=== PATIENT | male | born 1950 | race Caucasian/White ===

== ENCOUNTER 2020-10-28 11:57 | Inpatient (IN) | payer OTHER, MEDICARE ==
[2020-10-28] MEDS ORDERED: IPRATROPIUM-ALBUTEROL 3 ML NEB INHALATION STA (12:35)
--- NOTE | 2020-10-28 12:37 | ED ---
General Adult HPI - General Chief complaint: Weakness Stated complaint: weakness, confusion Time Seen by Provider: 10/28/20 12:00 Source: patient, family, RN notes reviewed, old records reviewed Mode of arrival: wheelchair Limitations: no limitations - History of Present Illness Initial comments: This is a 70-year-old male who presents emergency Department with a past medical history significant for bypass surgery hypertension high cholesterol. Patient comes in today stating since Tuesday he is becoming weaker and weaker to the point where he can't walk. Patient states she's also been somewhat short of breath. Patient also complains of congestion and coughing up some clear sputum. Patient denies any chest pain or palpitations. Patient denies any headache patient denies numbness weakness. Patient has any near syncopal episode. Patient denies any nausea vomiting or diarrhea. Patient's any abdominal pain. Patient denies any leg swelling or calf tenderness. - Related Data Home Medications Medication Instructions Recorded Confirmed Aspirin EC [Ecotrin Low Dose] 81 mg PO HS 10/28/20 10/28/20 Budesonide/Formoterol Fumarate 2 puff INHALATION RT-BID 10/28/20 10/28/20 [Symbicort 80-4.5 Mcg Inhaler] Cholecalciferol [Vitamin D3 (25 25 mcg PO BID 10/28/20 10/28/20 Mcg = 1000 Iu)] Cyclobenzaprine [Flexeril] 10 mg PO HS 10/28/20 10/28/20 EPINEPHrine (Auto Inject) [Epipen] 0.3 mg IM ONCE PRN 10/28/20 10/28/20 Ezetimibe [Zetia] 10 mg PO HS 10/28/20 10/28/20 HYDROcodone/APAP 10-325MG [[place] 1 tab PO 5XD PRN 10/28/20 10/28/20 10-325] Lidocaine 5% Patch [Lidoderm] 1 patch TRANSDERM DAILY PRN 10/28/20 10/28/20 Metoprolol Tartrate [Lopressor] 25 mg PO BID 10/28/20 10/28/20 Naloxone HCl [Narcan] 4 mg NASAL ONCE PRN 10/28/20 10/28/20 [place]-3 Fatty Acids/Fish Oil [Fish 2 cap PO BID 10/28/20 10/28/20 Oil 1,000 mg Softgel] Rosuvastatin Calcium [Crestor] 5 mg PO DAILY 10/28/20 10/28/20 Allergies Allergy/AdvReac Type Severity Reaction Status Date / Time bee venom protein (honey bee) Allergy Anaphylaxis Verified 10/28/20 13:48 ibuprofen Allergy Rash/Hives Verified 10/28/20 13:48 atorvastatin AdvReac Muscle Pain Verified 10/28/20 13:48 naproxen AdvReac Nausea & Verified 10/28/20 13:48 Vomiting rosuvastatin [From Crestor] AdvReac Muscle Pain Verified 10/28/20 13:48 simvastatin AdvReac Muscle Pain Verified 10/28/20 13:48 zolpidem AdvReac Fatigue Verified 10/28/20 13:48 Review of Systems ROS Statement: Those systems with pertinent positive or pertinent negative responses have been documented in the HPI. ROS Other: All systems not noted in ROS Statement are negative. Past Medical History Past Medical History: Coronary Artery Disease (CAD), Hyperlipidemia, Hypertension History of Any Multi-Drug Resistant Organisms: None Reported Past Surgical History: Cardiac Valve Replacement, Cholecystectomy, Pacemaker Past Psychological History: PTSD Smoking Status: Former smoker Past Alcohol Use History: None Reported Past Drug Use History: Marijuana General Exam - General Exam Comments Initial Comments: GENERAL: Patient is well-developed and well-nourished. Patient is nontoxic and well- hydrated and is in mild distress. ENT: Neck is soft and supple. No significant lymphadenopathy is noted. Oropharynx is clear. Moist mucous membranes. Neck has full range of motion without eliciting any pain. EYES: The sclera were anicteric and conjunctiva were pink and moist. Extraocular movements were intact and pupils were equal round and reactive to light. Eyelids were unremarkable. PULMONARY: Unlabored respirations. Good breath sounds bilaterally. Patient has diffuse c rackles worse on the right than the left. CARDIOVASCULAR: There is a regular rate and rhythm without any murmurs gallops or rubs. ABDOMEN: Soft and nontender with normal bowel sounds. SKIN: Skin is clear with no lesions or rashes and otherwise unremarkable. NEUROLOGIC: Patient is alert and oriented x3. Cranial nerves II through XII are grossly intact. Motor and sensory are also intact. Normal speech, volume and content. Symmetrical smile. MUSCULOSKELETAL: Normal extremities with adequate strength and full range of motion. LYMPHATICS: No significant lymphadenopathy is noted PSYCHIATRIC: Normal psychiatric evaluation. Limitations: no limitations Course Vital Signs 10/28/20 10/28/20 10/28/20 11:59 12:31 13:05 Temperature 98.5 F Pulse Rate 85 88 Respiratory 20 18 Rate Blood Pressure 126/76 O2 Sat by Pulse 93 L Oximetry 10/28/20 10/28/20 13:12 14:26 Temperature Pulse Rate 86 86 Respiratory 18 Rate Blood Pressure 139/78 O2 Sat by Pulse 98 Oximetry Medical Decision Making - Medical Decision Making EKG shows normal sinus rhythm at 83 bpm CA interval 192 QRS is 162 QT interval 454 QTC is 533. Patient's EKG shows a right bundle branch block. Chest x-ray shows coved pneumonia. New. Patient is COVID positive so started the patient on Decadron. Patient elevated d-dimer so I did a CAT scan of the chest per CT of the chest shows COVID ammonia but no pulmonary embolism. - Lab Data Result diagrams: 10/28/20 12:37 10/28/20 12:37 Lab Results 10/28/20 10/28/20 10/28/20 Range/Units 12:37 12:37 12:37 WBC 5.5 (3.8-10.6) k/uL RBC 4.66 (4.30-5.90) m/uL Hgb 14.3 (13.0-17.5) gm/dL Hct 42.5 (39.0-53.0) % MCV 91.2 (80.0-100.0) fL MCH 30.7 (25.0-35.0) pg MCHC 33.7 (31.0-37.0) g/dL RDW 13.1 (11.5-15.5) % Plt Count 101 L (150-450) k/uL MPV 8.3 Neutrophils % 69 % Lymphocytes % 24 % Monocytes % 5 % Eosinophils % 0 % Basophils % 1 % Neutrophils # 3.8 (1.3-7.7) k/uL Lymphocytes # 1.3 (1.0-4.8) k/uL Monocytes # 0.3 (0-1.0) k/uL Eosinophils # 0.0 (0-0.7) k/uL Basophils # 0.0 (0-0.2) k/uL PT 10.3 (9.0-12.0) sec INR 1.0 (<1.2) APTT 25.9 (22.0-30.0) sec D-Dimer 0.87 H (<0.60) mg/L FEU Sodium 137 (137-145) mmol/L Potassium 4.1 (3.5-5.1) mmol/L Chloride 97 L (98-107) mmol/L Carbon Dioxide 27 (22-30) mmol/L Anion Gap 13 mmol/L BUN 19 (9-20) mg/dL Creatinine 0.74 (0.66-1.25) mg/dL Est GFR (CKD-EPI)AfAm >90 (>60 ml/min/1.73 sqM) Est GFR (CKD-EPI)NonAf >90 (>60 ml/min/1.73 sqM) Glucose 110 H (74-99) mg/dL Plasma Lactic Acid [place] (0.7-2.0) mmol/L Calcium 8.7 (8.4-10.2) mg/dL Total Bilirubin 0.7 (0.2-1.3) mg/dL AST 75 H (17-59) U/L ALT 29 (4-49) U/L Alkaline Phosphatase 34 L (38-126) U/L Troponin I (0.000-0.034) ng/mL NT-Pro-B Natriuret Pep pg/mL Total Protein 7.0 (6.3-8.2) g/dL Albumin 4.3 (3.5-5.0) g/dL Urine Color Urine Appearance (Clear) Urine pH (5.0-8.0) Ur Specific [place] (1.001-1.035) Urine Protein (Negative) Urine Glucose (UA) (Negative) Urine Ketones (Negative) Urine Blood (Negative) Urine Nitrite (Negative) Urine Bilirubin (Negative) Urine Urobilinogen (<2.0) mg/dL Ur Leukocyte Esterase (Negative) Urine WBC (0-5) /hpf Urine Bacteria (None) /hpf Hyaline Casts (0-2) /lpf Urine Mucus (None) /hpf Coronavirus (PCR) (Not Detectd) 10/28/20 10/28/20 10/28/20 Range/Units 12:37 12:37 12:37 WBC (3.8-10.6) k/uL RBC (4.30-5.90) m/uL Hgb (13.0-17.5) gm/dL Hct (39.0-53.0) % MCV (80.0-100.0) fL MCH (25.0-35.0) pg MCHC (31.0-37.0) g/dL RDW (11.5-15.5) % Plt Count (150-450) k/uL MPV Neutrophils % % Lymphocytes % % Monocytes % % Eosinophils % % Basophils % % Neutrophils # (1.3-7.7) k/uL Lymphocytes # (1.0-4.8) k/uL Monocytes # (0-1.0) k/uL Eosinophils # (0-0.7) k/uL Basophils # (0-0.2) k/uL PT (9.0-12.0) sec INR (<1.2) APTT (22.0-30.0) sec D-Dimer (<0.60) mg/L FEU Sodium (137-145) mmol/L Potassium (3.5-5.1) mmol/L Chloride (98-107) mmol/L Carbon Dioxide (22-30) mmol/L Anion Gap mmol/L BUN (9-20) mg/dL Creatinine (0.66-1.25) mg/dL Est GFR (CKD-EPI)AfAm (>60 ml/min/1.73 sqM) Est GFR (CKD-EPI)NonAf (>60 ml/min/1.73 sqM) Glucose (74-99) mg/dL Plasma Lactic Acid [place] 1.4 (0.7-2.0) mmol/L Calcium (8.4-10.2) mg/dL Total Bilirubin (0.2-1.3) mg/dL AST (17-59) U/L ALT (4-49) U/L Alkaline Phosphatase (38-126) U/L Troponin I 0.014 (0.000-0.034) ng/mL NT-Pro-B Natriuret Pep 38 pg/mL Total Protein (6.3-8.2) g/dL Albumin (3.5-5.0) g/dL Urine Color Urine Appearance (Clear) Urine pH (5.0-8.0) Ur Specific [place] (1.001-1.035) Urine Protein (Negative) Urine Glucose (UA) (Negative) Urine Ketones (Negative) Urine Blood (Negative) Urine Nitrite (Negative) Urine Bilirubin (Negative) Urine Urobilinogen (<2.0) mg/dL Ur Leukocyte Esterase (Negative) Urine WBC (0-5) /hpf Urine Bacteria (None) /hpf Hyaline Casts (0-2) /lpf Urine Mucus (None) /hpf Coronavirus (PCR) (Not Detectd) 10/28/20 10/28/20 Range/Units 12:38 14:42 WBC (3.8-10.6) k/uL RBC (4.30-5.90) m/uL Hgb (13.0-17.5) gm/dL Hct (39.0-53.0) % MCV (80.0-100.0) fL MCH (25.0-35.0) pg MCHC (31.0-37.0) g/dL RDW (11.5-15.5) % Plt Count (150-450) k/uL MPV Neutrophils % % Lymphocytes % % Monocytes % % Eosinophils % % Basophils % % Neutrophils # (1.3-7.7) k/uL Lymphocytes # (1.0-4.8) k/uL Monocytes # (0-1.0) k/uL Eosinophils # (0-0.7) k/uL Basophils # (0-0.2) k/uL PT (9.0-12.0) sec INR (<1.2) APTT (22.0-30.0) sec D-Dimer (<0.60) mg/L FEU Sodium (137-145) mmol/L Potassium (3.5-5.1) mmol/L Chloride (98-107) mmol/L Carbon Dioxide (22-30) mmol/L Anion Gap mmol/L BUN (9-20) mg/dL Creatinine (0.66-1.25) mg/dL Est GFR (CKD-EPI)AfAm (>60 ml/min/1.73 sqM) Est GFR (CKD-EPI)NonAf (>60 ml/min/1.73 sqM) Glucose (74-99) mg/dL Plasma Lactic Acid [place] (0.7-2.0) mmol/L Calcium (8.4-10.2) mg/dL Total Bilirubin (0.2-1.3) mg/dL AST (17-59) U/L ALT (4-49) U/L Alkaline Phosphatase (38-126) U/L Troponin I (0.000-0.034) ng/mL NT-Pro-B Natriuret Pep pg/mL Total Protein (6.3-8.2) g/dL Albumin (3.5-5.0) g/dL Urine Color Yellow Urine Appearance Clear (Clear) Urine pH 5.5 (5.0-8.0) Ur Specific [place] 1.030 (1.001-1.035) Urine Protein 1+ H (Negative) Urine Glucose (UA) Negative (Negative) Urine Ketones 2+ H (Negative) Urine Blood Negative (Negative) Urine Nitrite Negative (Negative) Urine Bilirubin Negative (Negative) Urine Urobilinogen <2.0 (<2.0) mg/dL Ur Leukocyte Esterase Negative (Negative) Urine WBC 1 (0-5) /hpf Urine Bacteria Rare H (None) /hpf Hyaline Casts 1 (0-2) /lpf Urine Mucus Rare H (None) /hpf Coronavirus (PCR) Detected A (Not Detectd) Disposition Clinical Impression: Pneumonia due to COVID-19 virus, Generalized weakness Disposition: ADMITTED IP TO THIS HOSP Referrals: [facility] [Primary Care Provider] - 1-2 days Time of Disposition: 15:28
[2020-10-28 13:00] LABS: Basophils % (A) 1 %; Eosinophils % (A) 0 %; HCT 42.5 % (39.0-53.0); HGB 14.3 gm/dL (13.0-17.5); Lymphocytes # (A) 1.3 k/uL (1.0-4.8); Lymphocytes % (A) 24 %; MCH 30.7 pg (25.0-35.0); MCHC 33.7 g/dL (31.0-37.0); MCV 91.2 fL (80.0-100.0); Mean Platelet Volume 8.3; Monocytes # (A) 0.3 k/uL (0-1.0); Monocytes % (A) 5 %; Neutrophils # (A) 3.8 k/uL (1.3-7.7); Neutrophils % (A) 69 %; Platelet Count 101 k/uL (150-450); RBC 4.66 m/uL (4.30-5.90); RDW 13.1 % (11.5-15.5); WBC 5.5 k/uL (3.8-10.6)
[2020-10-28 13:09] LABS: ALT 29 U/L (4-49); AST 75 U/L (17-59); African American GFR (CKD) >90 (>60 ml/min/1.73 sqM); Albumin 4.3 g/dL (3.5-5.0); Alkaline Phosphatase 34 U/L (38-126); Anion Gap 13 mmol/L; Blood Urea Nitrogen 19 mg/dL (9-20); Calcium 8.7 mg/dL (8.4-10.2); Carbon Dioxide 27 mmol/L (22-30); Chloride 97 mmol/L (98-107); Glucose 110 mg/dL (74-99); Non-African American GFR(CKD) >90 (>60 ml/min/1.73 sqM); Potassium 4.1 mmol/L (3.5-5.1); Sodium 137 mmol/L (137-145); Total Bilirubin 0.7 mg/dL (0.2-1.3)
--- NOTE | 2020-10-28 13:14 | XR ---
EXAMINATION TYPE: XR chest 2V DATE OF EXAM: 10/28/2020 COMPARISON: 02/05/2013 TECHNIQUE: PA and lateral views submitted. HISTORY: Shortness of breath FINDINGS: Left basilar subsegmental consolidation. Mild hyperinflation.. Cardiac device with postoperative rell nge. Hyperinflation suggests COPD. Arthropathy of the shoulders. Hypertrophic and degenerative change of the spine. Vascular stent is noted. IMPRESSION: 1. No acute process. Correlate for COPD with left basilar atelectasis favored over early infiltrate.
[2020-10-28 13:22] LABS: Partial Thromboplastin Time 25.9 sec (22.0-30.0); Prothrombin Time 10.3 sec (9.0-12.0)
[2020-10-28 13:33] LABS: D-Dimer 0.87 mg/L FEU (<0.60)
[2020-10-28 14:52] LABS: Appearance,Urine Clear (Clear); Bacteria,Urine Rare /hpf; Bilirubin,Urine Negative (Negative); Blood,Urine Negative (Negative); Color,Urine Yellow; Glucose,Urine (UA) Negative (Negative); Hyaline Casts,Urine 1 /lpf (0-2); Ketones,Urine 2+ (Negative); Leukocyte Esterase,Urine Negative (Negative); Mucus,Urine Rare /hpf; Nitrite,Urine Negative (Negative); PH, Urine 5.5 (5.0-8.0); Protein,Urine 1+ (Negative); Urobilinogen,Urine <2.0 mg/dL (<2.0); WBC,Urine 1 /hpf (0-5)
--- NOTE | 2020-10-28 15:12 | CT ---
EXAMINATION TYPE: CT chest angio for PE DATE OF EXAM: 10/28/2020 COMPARISON: Radiograph earlier today HISTORY: 70-year-old male Elevated d-dimer, covid + TECHNIQUE: Contiguous axial scanning of the chest performed with IV Contrast, patient injected with 8 0 mL of Isovue 370. Coronal and sagittal MIP reconstructions performed. CT DLP: 486.1 mGycm Automated exposure control for dose reduction was used. FINDINGS: Median sternotomy wires are present. Endovascular aortic valve replacement. Post-CABG changes. Heart normal size without pericardial effusion. No flattening of the interventricular septum reflux o f contrast into the hepatic veins. Left anterior chest wall pacemaker generator with right atrial and right ventricular leads. Ectatic ascending aorta 3.9 cm. Variant direct takeoff of the left vertebral artery directly from the aortic arch. There is satisfactory opacification of the pulmonary arterial system without evidence for pulmonary e mbolus. Enlarged 2.0 cm right hilar lymph node. Mildly enlarged 1.7 cm left hilar lymph node. Otherwise, no t horacic lymphadenopathy by CT size criteria. These are probably reactive. Some peribronchovascular medial upper lobe groundglass, minimal additional scattered mid and lower le ng groundglass, and most extensive patchy and confluent ground glass within the basilar left lower lo be. No pleural effusion. Visualized upper abdomen shows low-attenuation of the liver suggesting underlying fatty infiltration. Cholecystectomy clips. Hilar splenule. Bones: DISH within the mid and lower thoracic spine. IMPRESSION: 1. NO EVIDENCE FOR PULMONARY EMBOLUS. 2. EXAM POSITIVE FOR COVID PNEUMONIA, UNDERESTIMATED ON RADIOGRAPHS. GREATEST DEGREE OF GROUNDGLASS I S IN THE BASILAR LEFT LOWER LOBE. 3. AN ENLARGED HILAR LYMPH NODE ON EITHER SIDE MEASURING UP TO 2.0 CM IS LIKELY REACTIVE.
[2020-10-28] MEDS ORDERED: dexAMETHasone 2 MG TAB PO STA (15:26)
[2020-10-28] MEDS ORDERED: SODIUM CHLORIDE 0.9% 1,000 ML IV ONE (15:28)
[2020-10-28] MEDS ORDERED: LIDOCAINE 5% PATCH TOPICAL PRN (17:16)
[2020-10-28] MEDS: CHOLECALCIFEROL 25 MCG (1000 IU) TABLET PO SCH (20:49)
[2020-10-28] MEDS: ASPIRIN 81 MG PO SCH (20:49)
[2020-10-28] MEDS: METOPROLOL TARTRATE 25 MG TAB PO SCH (20:49)
[2020-10-28] MEDS: EZETIMIBE 10 MG TAB PO SCH (20:49)
[2020-10-28] MEDS: ASCORBIC ACID 500 MG TAB PO SCH (20:49)
[2020-10-28] MEDS: CYCLOBENZAPRINE 10 MG TAB PO SCH (20:49)
[2020-10-28] MEDS: ZINC SULFATE 220 MG CAP PO SCH (20:49)
[2020-10-28] MEDS: ENOXAPARIN 40 MG/0.4 ML SYRINGE SQ SCH (20:49)
[2020-10-28] MEDS: SYMBICORT 80-4.5 MCG INHALER INHALATION SCH (21:23)
[2020-10-29] MEDS: ASCORBIC ACID 500 MG TAB PO SCH (08:59)
[2020-10-29] MEDS: CHOLECALCIFEROL 25 MCG (1000 IU) TABLET PO SCH ×2 (08:59→20:10)
[2020-10-29] MEDS: ENOXAPARIN 40 MG/0.4 ML SYRINGE SQ SCH (08:59)
[2020-10-29] MEDS: FAMOTIDINE 20 MG TAB PO SCH (08:59)
[2020-10-29] MEDS: ZINC SULFATE 220 MG CAP PO SCH (08:59)
[2020-10-29] MEDS: dexAMETHasone 2 MG TAB PO SCH (08:59)
[2020-10-29] MEDS: METOPROLOL TARTRATE 25 MG TAB PO SCH ×2 (09:00→20:09)
[2020-10-29] MEDS: SYMBICORT 80-4.5 MCG INHALER INHALATION SCH ×2 (09:54→21:52)
--- NOTE | 2020-10-29 12:45 | P.HPIM ---
History of Present Illness This is a pleasant 70 years old male with past medical history of hypertension, hyperlipidemia, coronary artery disease, status post cardiac valve replacement and bypass surgery, status post pacemaker. Also patient is complaining of from chronic right shoulder rotator cuff for 7 months and he will follow up with his PCP Patient presents because of increased weakness and difficulty walking for 4 days without dyspnea or shortness of breath. Patient has difficulty getting out of bed because he feels generally weak, especially he has right shoulder rotator cuff for several months which made him difficult to move around or out of bed and he needed the help of his and family. Also patient complains from some nonspecific lightheadedness and dizziness, no vertigo as there is no spinning of the room, no presyncope. He denies blurred vision, slurred speech, no arm or leg weakness or numbness. No headache Vitas looks stable, patient is saturating 95% on room air, he is afebrile. Labs including CBC, BMP and liver enzymes were unremarkable. ProBNP is low at 38, INR is 1.0 d-dimer is slightly elevated at 0.8. CTA of the chest: No pulmonary embolism, bilateral groundglass opacity suspicious for Covid pneumonia and a large hilar lymphadenopathy on either side up to 2 cm, mostly reactive EKG showed normal sinus rhythm at 83 with right bundle branch block and QTC of 533 In the emergency room patient was started on vitamin C, zinc, also she was started on dexamethasone and Lovenox. Pulmonary team were consulted Review of Systems CONSTITUTIONAL: No fever, no malaise, no fatigue. HEENT: No recent visual problems or hearing problems. Denied any sore throat. CARDIOVASCULAR: No orthopnea, PND, no palpitations, no syncope. PULMONARY: No shortness of breath, no cough, no hemoptysis. GASTROINTESTINAL: No diarrhea, no nausea, no vomiting, no abdominal pain. Normoactive bowel sounds. NEUROLOGICAL: No headaches, no weakness, no numbness. HEMATOLOGICAL: Denies any bleeding or petechiae. GENITOURINARY: Denies any burning micturition, frequency, or urgency. MUSCULOSKELETAL/RHEUMATOLOGICAL: Denies any joint pain, swelling, or any muscle pain. ENDOCRINE: Denies any polyuria or polydipsia. Past Medical History Past Medical History: Coronary Artery Disease (CAD), Hyperlipidemia, Hypertension History of Any Multi-Drug Resistant Organisms: None Reported Past Surgical History: Cardiac Valve Replacement, Cholecystectomy, Coronary Bypass/CABG, Pacemaker Additional Past Surgical History / Comment(s): triple bypass, hemorrhoids removed Past Anesthesia/Blood Transfusion Reactions: No Reported Reaction Type of Cardiac Device: Permanent Pacemaker Device Placement Date:: 2017 Past Psychological History: PTSD Smoking Status: Former smoker Past Alcohol Use History: None Reported Past Drug Use History: Marijuana Medications and Allergies Home Medications Medication Instructions Recorded Confirmed Type Aspirin EC [Ecotrin Low Dose] 81 mg PO HS 10/28/20 10/28/20 History Budesonide/Formoterol Fumarate 2 puff INHALATION RT-BID 10/28/20 10/28/20 History [Symbicort 80-4.5 Mcg Inhaler] Cholecalciferol [Vitamin D3 (25 25 mcg PO BID 10/28/20 10/28/20 History Mcg = 1000 Iu)] Cyclobenzaprine [Flexeril] 10 mg PO HS 10/28/20 10/28/20 History EPINEPHrine (Auto Inject) [Epipen] 0.3 mg IM ONCE PRN 10/28/20 10/28/20 History Ezetimibe [Zetia] 10 mg PO HS 10/28/20 10/28/20 History HYDROcodone/APAP 10-325MG [[place] 1 tab PO 5XD PRN 10/28/20 10/28/20 History 10-325] Lidocaine 5% Patch [Lidoderm] 1 patch TRANSDERM DAILY PRN 10/28/20 10/28/20 History Metoprolol Tartrate [Lopressor] 25 mg PO BID 10/28/20 10/28/20 History Naloxone HCl [Narcan] 4 mg NASAL ONCE PRN 10/28/20 10/28/20 History [place]-3 Fatty Acids/Fish Oil [Fish 2 cap PO BID 10/28/20 10/28/20 History Oil 1,000 mg Softgel] Rosuvastatin Calcium [Crestor] 5 mg PO DAILY 10/28/20 10/28/20 History Allergies Allergy/AdvReac Type Severity Reaction Status Date / Time bee venom protein (honey bee) Allergy Anaphylaxis Verified 10/28/20 13:48 ibuprofen Allergy Rash/Hives Verified 10/28/20 13:48 atorvastatin AdvReac Muscle Pain Verified 10/28/20 13:48 naproxen AdvReac Nausea & Verified 10/28/20 13:48 Vomiting rosuvastatin [From Crestor] AdvReac Muscle Pain Verified 10/28/20 13:48 simvastatin AdvReac Muscle Pain Verified 10/28/20 13:48 zolpidem AdvReac Fatigue Verified 10/28/20 13:48 Physical Exam Vitals: Vital Signs Temp Pulse Pulse Resp BP BP Pulse Ox 10/29/20 05:57 97.8 F 55 L 144/68 95 10/29/20 02:51 98.4 F 62 145/73 97 10/28/20 21:58 98.1 F 82 144/78 94 L 10/28/20 20:26 98.1 F 79 146/81 96 10/28/20 19:43 98.0 F 75 18 142/82 98 10/28/20 16:10 81 18 126/75 98 10/28/20 14:26 86 18 139/78 98 10/28/20 13:12 86 10/28/20 13:05 88 10/28/20 12:31 18 10/28/20 11:59 98.5 F 85 20 126/76 93 L Intake and Output 10/28/20 10/29/20 10/29/20 22:59 06:59 14:59 Intake Total 100 Balance 100 Intake: Oral 100 Other: Voiding Method Urinal # Voids 4 Weight 113.398 kg GENERAL: The patient is alert and oriented x3, not in any acute distress. Well developed, well nourished. HEENT: Pupils are round and equally reacting to light. EOMI. No scleral icterus. No conjunctival pallor. Normocephalic, atraumatic. No pharyngeal erythema. No thyromegaly. CARDIOVASCULAR: S1 and S2 present. No murmurs, rubs, or gallops. PULMONARY: Chest is clear to auscultation, no wheezing or crackles. ABDOMEN: Soft, nontender, nondistended, normoactive bowel sounds. No palpable organomegaly. MUSCULOSKELETAL: No joint swelling or deformity. EXTREMITIES: No cyanosis, clubbing, or pedal edema. NEUROLOGICAL: Gross neurological examination did not reveal any focal deficits. SKIN: No rashes. No petechiae Results CBC & Chem 7: 10/28/20 12:37 10/28/20 12:37 Labs: Abnormal Lab Results - Last 24 Hours (Table) 10/28/20 10/28/20 10/28/20 Range/Units 12:37 12:37 12:37 Plt Count 101 L (150-450) k/uL D-Dimer 0.87 H (<0.60) mg/L FEU Chloride 97 L (98-107) mmol/L Glucose 110 H (74-99) mg/dL AST 75 H (17-59) U/L Alkaline Phosphatase 34 L (38-126) U/L Urine Protein (Negative) Urine Ketones (Negative) Urine Bacteria (None) /hpf Urine Mucus (None) /hpf Coronavirus (PCR) (Not Detectd) 10/28/20 10/28/20 Range/Units 12:38 14:42 Plt Count (150-450) k/uL D-Dimer (<0.60) mg/L FEU Chloride (98-107) mmol/L Glucose (74-99) mg/dL AST (17-59) U/L Alkaline Phosphatase (38-126) U/L Urine Protein 1+ H (Negative) Urine Ketones 2+ H (Negative) Urine Bacteria Rare H (None) /hpf Urine Mucus Rare H (None) /hpf Coronavirus (PCR) Detected A (Not Detectd) Thrombosis Risk Factor Assmnt - Choose All That Apply Each Factor Represents 1 point: Obesity (BMI >25) Each Risk Factor Represents 2 Points: Age 61-74 years Thrombosis Risk Factor Assessment Total Risk Factor Score: 3 Thrombosis Risk Factor Assessment Level: Moderate Risk Assessment and Plan Assessment: Acute bilateral Covid pneumonitis Generalized weakness and fatigue, mostly related to his viral infection syndrome, worsened with lightheadedness chronic right shoulder rotator cuff for 7 months. The patient refused to see orthopedic in-house and he was to follow up with his PCP as an outpatient Hypertension Hyperlipidemia History of coronary artery disease status post CABG and cardiac valve r eplacement Status post pacemaker Plan: This is a pleasant 70 years old male who presents with Covid pneumonia. Continue with ascorbic acid, zinc, Lovenox. Follow-up recommendation by bending roll operator. We will order telemetry and echocardiogram. Check orthostatic vitals. Given patient's extensive cardiac history and pacemaker will call intensive care anaesthetist for possible pacemaker interrogation per intensive care anaesthetist Labs and medication were reviewed.. Continue same treatment. Continue with symptomatic treatment. Resume home medication. Monitor lytes and vitals. DVT and GI prophylaxis. Further recommendations depends on the clinical course of the patient DVT prophylaxis: Subcutaneous Lovenox GI Prophylaxis: Pepcid PT/OT: Pending Prognosis is guarded
--- NOTE | 2020-10-29 14:54 | P.CNPUL ---
History of Present Illness Consult date: 10/29/20 Requesting physician: Nikko Ray Reason for consult: other Chief complaint: Weakness, decreased strength. History of present illness: This is a 70-year-old male, who presents to the emergency department, with weakness and fatigue. The patient apparently tested positive for COVID 19, but does not have any lung issues. He denies any shortness of breath, cough, wheezing, phlegm production, hemoptysis, or any other pulmonary complaints. His complaints include primarily just weakness and fatigue. He also denies any fever or chills. He apparently has a history of bypass grafting, hypertension, and hyperlipidemia. He also is a nonsmoker. I asked him today specifically about pulmonary complaints, and he denies all of them. White count is 5.5, hemoglobin 14.3, hematocrit 42.5, and platelet count 101,000. PT, INR, PTT are all normal. D-dimer is 0.87. Sodium 137, potassium 4.1, chlorides 97, CO2 27, anion gap is 13, BUN 19, creatinine 0.74. Urine is essentially negative. Chest x-ray is negative. CT angiogram, is negative for pulmonary embolism. CT also shows some mild groundglass opacities in the left lower lobe, likely consistent with very mild COVID 19 pneumonia. As mentioned, the patient is not requiring any oxygen therapy. Review of Systems REVIEW OF SYSTEMS: CONSTITUTIONAL: Weakness and fatigue. NEUROLOGIC: [ Negative.] HEENT: [ Negative.] CARDIAC: [Negative.] PULMONARY: He denies shortness of breath and cough to me. GI: [Negative.] : [Negative.] RHEUMATOLOGIC: [ Negative.] IMMUNOLOGIC: [ Negative.] ENDOCRINE: [Negative. ] DERMATOLOGIC: [Negative.] Past Medical History Past Medical History: Coronary Artery Disease (CAD), Hyperlipidemia, Hypertension History of Any Multi-Drug Resistant Organisms: None Reported Past Surgical History: Cardiac Valve Replacement, Cholecystectomy, Coronary Bypass/CABG, Pacemaker Additional Past Surgical History / Comment(s): triple bypass, hemorrhoids removed Past Anesthesia/Blood Transfusion Reactions: No Reported Reaction Type of Cardiac Device: Permanent Pacemaker Device Placement Date:: 2017 Past Psychological History: PTSD Smoking Status: Former smoker Past Alcohol Use History: None Reported Past Drug Use History: Marijuana Medications and Allergies Home Medications Medication Instructions Recorded Confirmed Type Aspirin EC [Ecotrin Low Dose] 81 mg PO HS 10/28/20 10/28/20 History Budesonide/Formoterol Fumarate 2 puff INHALATION RT-BID 10/28/20 10/28/20 History [Symbicort 80-4.5 Mcg Inhaler] Cholecalciferol [Vitamin D3 (25 25 mcg PO BID 10/28/20 10/28/20 History Mcg = 1000 Iu)] Cyclobenzaprine [Flexeril] 10 mg PO HS 10/28/20 10/28/20 History EPINEPHrine (Auto Inject) [Epipen] 0.3 mg IM ONCE PRN 10/28/20 10/28/20 History Ezetimibe [Zetia] 10 mg PO HS 10/28/20 10/28/20 History HYDROcodone/APAP 10-325MG [[place] 1 tab PO 5XD PRN 10/28/20 10/28/20 History 10-325] Lidocaine 5% Patch [Lidoderm] 1 patch TRANSDERM DAILY PRN 10/28/20 10/28/20 History Metoprolol Tartrate [Lopressor] 25 mg PO BID 10/28/20 10/28/20 History Naloxone HCl [Narcan] 4 mg NASAL ONCE PRN 10/28/20 10/28/20 History [place]-3 Fatty Acids/Fish Oil [Fish 2 cap PO BID 10/28/20 10/28/20 History Oil 1,000 mg Softgel] Rosuvastatin Calcium [Crestor] 5 mg PO DAILY 10/28/20 10/28/20 History Allergies Allergy/AdvReac Type Severity Reaction Status Date / Time bee venom protein (honey bee) Allergy Anaphylaxis Verified 10/28/20 13:48 ibuprofen Allergy Rash/Hives Verified 10/28/20 13:48 atorvastatin AdvReac Muscle Pain Verified 10/28/20 13:48 naproxen AdvReac Nausea & Verified 10/28/20 13:48 Vomiting rosuvastatin [From Crestor] AdvReac Muscle Pain Verified 10/28/20 13:48 simvastatin AdvReac Muscle Pain Verified 10/28/20 13:48 zolpidem AdvReac Fatigue Verified 10/28/20 13:48 Physical Exam Osteopathic Statement: *. No significant issues noted on an osteopathic structural exam other than those noted in the History and Physical/Consult. Vitals: Vital Signs Temp Pulse Pulse Resp BP BP Pulse Ox 10/29/20 14:00 97.7 F 75 18 119/70 92 L 10/29/20 12:46 84 140/82 10/29/20 12:45 61 144/76 10/29/20 10:00 97.7 F 63 18 128/79 94 L 10/29/20 09:54 95 10/29/20 05:57 97.8 F 55 L 144/68 95 10/29/20 02:51 98.4 F 62 145/73 97 10/28/20 21:58 98.1 F 82 144/78 94 L 10/28/20 20:26 98.1 F 79 146/81 96 10/28/20 19:43 98.0 F 75 18 142/82 98 10/28/20 16:10 81 18 126/75 98 Intake and Output 10/28/20 10/29/20 10/29/20 22:59 06:59 14:59 Intake Total 100 Balance 100 Intake: Oral 100 Other: Voiding Method Urinal # Voids 4 2 # Bowel Movements 1 Weight 113.398 kg No acute distress, oriented 3. Room air saturation is 92-95%. HEENT examination is grossly unremarkable. Mucous membranes are moist. No oral lesions. No supplemental oxygen noted. Neck supple. Full range of motion. No adenopathy thyromegaly or neck vein distention. Cardiovascular examination reveals regular rhythm rate. S1-S2 normal. No S3 or S4. No discernible murmur noted. Heart rate is 75 bpm. Lungs reveal clear breath sounds. Her sounds are equal bilaterally. No adventitious lung sounds including wheezes rhonchi or crackles. Abdomen soft bowel sounds are heard. No masses or tenderness. Extremities are intact. No cyanosis clubbing or edema. Skin is without rash or lesion. Neurologic examination is brief but nonfocal. Results - Laboratory Findings CBC and BMP: 10/28/20 12:37 10/28/20 12:37 PT/INR, D-dimer PT 10.3 sec (9.0-12.0) 10/28/20 12:37 INR 1.0 (<1.2) 10/28/20 12:37 D-Dimer 0.87 mg/L FEU (<0.60) H 10/28/20 12:37 Abnormal lab findings: Abnormal Labs 10/28/20 10/28/20 10/28/20 12:37 12:37 12:37 Plt Count 101 L D-Dimer 0.87 H Chloride 97 L Glucose 110 H AST 75 H Alkaline Phosphatase 34 L Urine Protein Urine Ketones Urine Bacteria Urine Mucus Coronavirus (PCR) 10/28/20 10/28/20 12:38 14:42 Plt Count D-Dimer Chloride Glucose AST Alkaline Phosphatase Urine Protein 1+ H Urine Ketones 2+ H Urine Bacteria Rare H Urine Mucus Rare H Coronavirus (PCR) Detected A - Diagnostic Findings Chest x-ray: image reviewed CT scan - chest: image reviewed Assessment and Plan Assessment: Mild COVID 19 pneumonitis, primarily involving the left lower lobe. Patient is not hypoxemic at this time. Weakness and fatigue, secondary to above. History of coronary artery disease. History of hyperlipidemia. History of hypertension. History of cardiac valve replacement surgery. Prior tobacco use, rule out COPD. Status post pacemaker insertion. Plan: Plan dated 10/29/2020. The patient's currently on Decadron. The patient should not get anything more than that, and the typical cocktail of vitamins. He is not a candidate for REM in my opinion, nor should he get convalescent plasma, or TOCI. In fact, in my opinion, the patient could be considered for discharge. If the patient worsens, as instructed, he can certainly come back to the hospital to be further evaluate d. Additional recommendations and suggestions are forthcoming. Diagnosis is guarded. We will continue to follow and give appropriate recommendations when necessary. Time with Patient: Greater than 30
[2020-10-29] MEDS: HYDROcodone/APAP 10-325MG 1 EACH TAB PO PRN ×2 (16:10→22:47)
[2020-10-29] MEDS: EZETIMIBE 10 MG TAB PO SCH (20:09)
[2020-10-29] MEDS: CYCLOBENZAPRINE 10 MG TAB PO SCH (20:09)
[2020-10-29] MEDS: ASPIRIN 81 MG PO SCH (20:10)
--- NOTE | 2020-10-30 08:01 | ECHOF ---
Referral Reason:Rule out heart disease MEASUREMENTS -------- HEIGHT: 177.8 cm WEIGHT: 113.4 kg BP: 140/82 RVIDd: 3.2 cm (< 3.3) IVSd: 1.4 cm (0.6 - 1.1) LVIDd: 4.3 cm (3.9 - 5.3) LVPWd: 1.4 cm (0.6 - 1.1) IVSs: 1.8 cm LVIDs: 2.9 cm LVPWs: 1.9 cm LA Diam: 3.9 cm (2.7 - 3.8) Ao Diam: 2.6 cm (2.0 - 3.7) MV EXCURSION: 11.063 mm (> 18.000) MV EF SLOPE: 37 mm/s (70 - 150) EPSS: 2.0 cm MV E Rael: 0.64 m/s MV DecT: 340 ms MV A Real: 0.81 m/s MV E/A Ratio: 0.79 AV maxP.78 mmHg AV meanP.43 mmHg RAP: 5.00 mmHg RVSP: 27.65 mmHg FINDINGS -------- Paced rhythm. This was a technically difficult study with suboptimal views. The left ventricular size is normal. There is moderate concentric left ventricular hypertrophy. O verall left ventricular systolic function is normal with, an EF between 60 - 65 %. The right ventricle is normal in size. The left atrium is normal in size. The right atrium is normal in size. Lumason used Peak/mean gradient across the Aortic Valve is 15.78mmHg / 8.43mmHg. Normally functioning bioprosthe tic valve. Mild mitral annular calcification present. Mild tricuspid regurgitation present. Right ventricular systolic pressure is normal at < 35 mmHg. The pulmonic valve was not well visualized. The aortic root size is normal. IVC Not well visulized. There is no pericardial effusion. CONCLUSIONS -------- 1. This was a technically difficult study with suboptimal views. 2. The left ventricular size is normal. 3. There is moderate concentric left ventricular hypertrophy. 4. Overall left ventricular systolic function is normal with, an EF between 60 - 65 %. 5. Lumason used 6. Peak/mean gradient across the Aortic Valve is 15.78mmHg / 8.43mmHg. 7. Normally functioning bioprosthetic valve. 8. Mild mitral annular calcification present. 9. Mild tricuspid regurgitation present. 10. There is no pericardial effusion. MACHINE TOOL REBUILDER: Yue Espinoza RDCS
[2020-10-30] MEDS: SYMBICORT 80-4.5 MCG INHALER INHALATION SCH ×2 (08:02→18:55)
[2020-10-30] MEDS: dexAMETHasone 2 MG TAB PO SCH (08:37)
[2020-10-30] MEDS: ZINC SULFATE 220 MG CAP PO SCH (08:37)
[2020-10-30] MEDS: ASCORBIC ACID 500 MG TAB PO SCH (08:37)
[2020-10-30] MEDS: METOPROLOL TARTRATE 25 MG TAB PO SCH ×2 (08:37→20:22)
[2020-10-30] MEDS: FAMOTIDINE 20 MG TAB PO SCH (08:37)
[2020-10-30] MEDS: ENOXAPARIN 40 MG/0.4 ML SYRINGE SQ SCH (08:37)
[2020-10-30] MEDS: CHOLECALCIFEROL 25 MCG (1000 IU) TABLET PO SCH ×2 (08:37→20:22)
[2020-10-30 11:32] LABS: T4, Free (Free Thyroxine) 1.01 ng/dL (0.78-2.19)
[2020-10-30] MEDS: HYDROcodone/APAP 10-325MG 1 EACH TAB PO PRN ×2 (14:49→20:22)
[2020-10-30] MEDS: LEVOTHYROXINE 75 MCG TAB PO SCH (14:49)
--- NOTE | 2020-10-30 15:17 | P.PN ---
Subjective Progress Note Date: 10/30/20 Principal diagnosis: Weakness, decreased strength This is a 70-year-old male, who presents to the emergency department, with weakness and fatigue. The patient apparently tested positive for COVID 19, but does not have any lung issues. He denies any shortness of breath, cough, wheezing, phlegm production, hemoptysis, or any other pulmonary complaints. His complaints include primarily just weakness and fatigue. He also denies any fever or chills. He apparently has a history of bypass grafting, hypertension, and hyperlipidemia. He also is a nonsmoker. I asked him today specifically about pulmonary complaints, and he denies all of them. White count is 5.5, hemoglobin 14.3, hematocrit 42.5, and platelet count 101,000. PT, INR, PTT are all normal. D-dimer is 0.87. Sodium 137, potassium 4.1, chlorides 97, CO2 27, anion gap is 13, BUN 19, creatinine 0.74. Urine is essentially negative. Chest x-ray is negative. CT angiogram, is negative for pulmonary embolism. CT also shows some mild groundglass opacities in the left lower lobe, likely consistent with very mild COVID 19 pneumonia. As mentioned, the patient is not requiring any oxygen therapy. On 10/30/2020 patient seen in follow-up on medical floor, he is awake, he is on room air, breathing comfortably, pulse ox is 92-96%, vital signs are stable, no chest discomfort, no worsening dyspnea and hypoxia, patient had no acute events overnight, he continues on oral dexamethasone, Lovenox at prophylactic dose, vitamins. Blood cultures have been negative, no new labs, no new chest x-rays today. Objective - Vital Signs Vital signs: Vital Signs Temp 98.1 F 10/30/20 13:58 Pulse 69 10/30/20 13:58 Resp 18 10/30/20 13:58 BP 124/75 10/30/20 13:58 Pulse Ox 92 L 10/30/20 13:58 Intake & Output 10/29/20 10/30/20 10/30/20 18:59 06:59 18:59 Output Total 375 Balance -375 Output: Urine 375 Other: Voiding Method Urinal # Voids 2 2 # Bowel Movements 1 - Exam GENERAL EXAM: Alert, very pleasant, 70-year-old white male, on room air, comfo rtable in no apparent distress. HEAD: Normocephalic/atraumatic. EYES: Normal reaction of pupils, equal size. Conjunctiva pink, sclera white. NOSE: Clear with pink turbinates. THROAT: No erythema or exudates. NECK: No masses, no JVD, no thyroid enlargement, no adenopathy. CHEST: No chest wall deformity. Symmetrical expansion. LUNGS: Equal air entry with no crackles, wheeze, rhonchi or dullness. CVS: Regular rate and rhythm, normal S1 and S2, no gallops, no murmurs, no rubs ABDOMEN: Soft, nontender. No hepatosplenomegaly, normal bowel sounds, no guarding or rigidity. EXTREMITIES: No clubbing, no edema, no cyanosis, 2+ pulses and upper and lower extremities. MUSCULOSKELETAL: Muscle strength and tone normal. SPINE: No scoliosis or deformity SKIN: No rashes CENTRAL NERVOUS SYSTEM: Alert and oriented -3. No focal deficits, tone is normal in all 4 extremities. PSYCHIATRIC: Alert and oriented -3. Appropriate affect. Intact judgment and insight. - Labs CBC & Chem 7: 10/28/20 12:37 10/28/20 12:37 Labs: Abnormal Lab Results - Last 24 Hours (Table) 10/30/20 Range/Units 09:24 TSH 4.960 H (0.465-4.680) mIU/L Microbiology - Last 24 Hours (Table) 10/28/20 13:41 Blood Culture - Preliminary Blood No Growth after 24 hours 10/28/20 13:58 Blood Culture - Preliminary Blood No Growth after 24 hours Assessment and Plan Plan: Assessment: #1. Mild COVID 19 pneumonitis, primarily involving the left lower lobe, without evidence of hypoxemia. Patient was not a candidate for Remdesivir, convalescent plasma, or Tocilizumab #2. Weakness and fatigue #3. History of CAD #4. History of hyperlipidemia #5. History of hypertension #6. History of cardiac valve replacement surgery #7. Prior history of tobacco use, rule out COPD #8. Status post pacemaker insertion Plan: Continue current treatment, continue Decadron, continue Lovenox, patient is doing well, no worsening dyspnea or hypoxia, from pulmonary perspective . There is no worsening of hypoxia or dyspnea, he can be considered for discharge home t o complete outpatient course of Decadron a total of 10 days, and outpatient follow-up with Dr. Che in the office in 2 weeks I performed a history & physical examination of the patient and discussed their management with my nurse practitioner, Mary Albert. I reviewed the nurse practitioner's note and agree with the documented findings and plan of care. Lung sounds are positive for a few scattered rales. The findings and the impression was discussed with the patient. I attest to the documentation by the nurse practitioner. Time with Patient: Less than 30
[2020-10-30] MEDS: EZETIMIBE 10 MG TAB PO SCH (20:22)
[2020-10-30] MEDS: ASPIRIN 81 MG PO SCH (20:22)
[2020-10-30] MEDS: CYCLOBENZAPRINE 10 MG TAB PO SCH (20:22)
--- NOTE | 2020-10-30 21:40 | P.CRDCN ---
History of Present Illness History of present illness: HISTORY OF PRESENTING ILLNESS This is a pleasant Patient is a pleasant 70-year-old male with history of hypertension, hyperlipidemia, coronary artery disease status post CABG, aortic stenosis status post TAVR, permanent pacemaker, rotator cuff injury, hyperlipidemia, former tobacco abuse who normally follows with a swimming coach out of the [facility] in [place]. Patient presented with episodes of feeling intermittently lightheaded and dizzy. He states he would have episodes where he would feel like the room was spinning around him and he would close his eyes and that would improve. Usually episodes lasted for approximately 20 seconds. He also notes that for approximately the last 1 month he has been feeling "foggy" at times and is just more confused at times. Patient states his notes this as well. He denies any specific chest pain or pressure. He has had difficulty with walking which appears to be a fatigue issue as well as may be a balance issue. He was tested for Covid 19 and noted to be positive and a CAT scan showed left lung mild groundglass opacities. He admits he did have bypass approximately 12 years ago and also had an aortic valve replacement 2 years ago and believes he had heart catheterization prior to that without need for any stenting. He denies any chest pain or pressure. DIAGNOSTICS EKG shows normal sinus rhythm, right bundle branch block, left axis deviation with nonspecific ST-T wave abnormalities. Echo shows normal left ventricular function with ejection fraction 60-65% with gradient across aortic valve mean of 8 and no significant valvular disease. REVIEW OF SYSTEMS At the time of my exam: CONSTITUTIONAL: Denies fever or chills. CARDIOVASCULAR: Denies chest pain, +shortness of breath, no orthopnea, PND or palpitations. RESPIRATORY: Denies cough. GASTROINTESTINAL: Denies abdominal pain, diarrhea, constipation, nausea or vomiting. MUSCULOSKELETAL: Denies myalgias. NEUROLOGIC: Denies numbness, tingling, headacbe or weakness. ENDOCRINE: Denies fatigue, weight change, polydipsia or polyurina. GENITOURINARY: Denies burning, hematuria or urgency with micturation. HEMATOLOGIC: Denies history of anemia or bleeding. PHYSICAL EXAMINATION Vitals reviewed CONSTITUTIONAL: No apparent distress. HEENT: Head is normocephalic. Pupils are equal, round. Sclerae anicteric. Mucous membranes of the mouth are moist. No JVD. No carotid bruit. CHEST EXAMINATION: Lungs are clear to auscultation. No chest wall tenderness is noted on palpation or with deep breathing. HEART EXAMINATION: Regular rate and rhythm. S1, S2 heard. No murmurs, gallops or rub. ABDOMEN: Soft, nontender. Positive bowel sounds. EXTREMITIES: 2+ peripheral pulses, no lower extremity edema and no calf tenderness. NEUROLOGIC EXAMINATION: Patient is awake, alert and oriented x3. ASSESSMENT 1. Coronary artery disease status post CABG, no current angina-type symptoms 2. Covid 19 pneumonia 3. Weakness and fatigue likely related to Covid 19 pneumonia 4. Episodes of "fogginess "no focal deficits, likely related to Covid 19 5. History of TAVR, mean gradient of 8 by most recent echo 6. Shortness of breath, no significant heart failure symptoms with normal BNP 7. Dizzinesshe describes more vertiginous symptoms with room spinning sensation and per with closing his eyes. Check from the pacemaker however does not appear cardiogenic. 8. Sick sinus syndrome status post permanent pacemaker PLAN Patient with symptoms of fatigue, minimal shortness breath, "fogginess "likely related to Covid 19 infection. Patient additionally with symptoms of dizziness which she is describing more as vertigo-like sensation of room spinning around him for 30 seconds which improves with closing his eyes. May be related to vertigo. No cardiogenic etiology identified. 2-D echo reviewed with normal left ventricular function and normally functioning aortic valve. Patient without any significant angina-type symptoms and normal troponins. Normal BNP and do not suspect any dyspnea related to heart failure. We will check his permanent pacemaker and as long as no issues, patient may be discharged from a cardiac standpoint. Thank you kindly for this consultation. Past Medical History Past Medical History: Coronary Artery Disease (CAD), Hyperlipidemia, Hypertension History of Any Multi-Drug Resistant Organisms: None Reported Past Surgical History: Cardiac Valve Replacement, Cholecystectomy, Coronary Bypass/CABG, Pacemaker Additional Past Surgical History / Comment(s): triple bypass, hemorrhoids removed Past Anesthesia/Blood Transfusion Reactions: No Reported Reaction Type of Cardiac Device: Permanent Pacemaker Device Placement Date:: 2017 Past Psychological History: PTSD Smoking Status: Former smoker Past Alcohol Use History: None Reported Past Drug Use History: Marijuana Medications and Allergies Home Medications Medication Instructions Recorded Confirmed Type Aspirin EC [Ecotrin Low Dose] 81 mg PO HS 10/28/20 10/28/20 History Budesonide/Formoterol Fumarate 2 puff INHALATION RT-BID 10/28/20 10/28/20 History [Symbicort 80-4.5 Mcg Inhaler] Cholecalciferol [Vitamin D3 (25 25 mcg PO BID 10/28/20 10/28/20 History Mcg = 1000 Iu)] Cyclobenzaprine [Flexeril] 10 mg PO HS 10/28/20 10/28/20 History EPINEPHrine (Auto Inject) [Epipen] 0.3 mg IM ONCE PRN 10/28/20 10/28/20 History Ezetimibe [Zetia] 10 mg PO HS 10/28/20 10/28/20 History HYDROcodone/APAP 10-325MG [[place] 1 tab PO 5XD PRN 10/28/20 10/28/20 History 10-325] Lidocaine 5% Patch [Lidoderm] 1 patch TRANSDERM DAILY PRN 10/28/20 10/28/20 History Metoprolol Tartrate [Lopressor] 25 mg PO BID 10/28/20 10/28/20 History Naloxone HCl [Narcan] 4 mg NASAL ONCE PRN 10/28/20 10/28/20 History [place]-3 Fatty Acids/Fish Oil [Fish 2 cap PO BID 10/28/20 10/28/20 History Oil 1,000 mg Softgel] Rosuvastatin Calcium [Crestor] 5 mg PO DAILY 10/28/20 10/28/20 History Allergies Allergy/AdvReac Type Severity Reaction Status Date / Time bee venom protein (honey bee) Allergy Anaphylaxis Verified 10/28/20 13:48 ibuprofen Allergy Rash/Hives Verified 10/28/20 13:48 atorvastatin AdvReac Muscle Pain Verified 10/28/20 13:48 naproxen AdvReac Nausea & Verified 10/28/20 13:48 Vomiting rosuvastatin [From Crestor] AdvReac Muscle Pain Verified 10/28/20 13:48 simvastatin AdvReac Muscle Pain Verified 10/28/20 13:48 zolpidem AdvReac Fatigue Verified 10/28/20 13:48 Physical Exam Vitals: Vital Signs Temp Pulse Resp BP Pulse Ox 10/30/20 20:00 118/63 10/30/20 18:00 98.6 F 71 18 136/76 92 L 10/30/20 13:58 98.1 F 69 18 124/75 92 L 10/30/20 10:00 97.9 F 75 18 105/62 91 L 10/30/20 06:08 99.7 F H 60 19 151/74 96 10/30/20 03:27 98.8 F 57 L 18 116/65 96 10/29/20 22:45 98.6 F 58 L 17 111/69 95 Intake and Output 10/30/20 10/30/20 10/30/20 06:59 14:59 22:59 Output Total 375 Balance -375 Output: Urine 375 Other: # Voids 2 Results 10/28/20 12:37 10/28/20 12:37 Current Medications Generic Name Dose Route Start Last Admin Trade Name Freq PRN Reason Stop Dose Admin Hydrocodone Bitart/Acetaminophen 1 each 10/28/20 17:17 10/30/20 20:22 Hydrocodone/Apap 10-325mg 1 Each Tab PO 1 each Q6HR PRN Administration Pain Ascorbic Acid 1,000 mg 10/28/20 17:30 10/30/20 08:37 Ascorbic Acid 500 Mg Tab PO 1,000 mg DAILY ASHLEY Administration Aspirin 81 mg 10/28/20 21:00 10/30/20 20:22 Aspirin 81 Mg PO 81 mg HS ASHLEY Administration Budesonide/Formoterol Fumarate 2 puff 10/28/20 20:00 10/30/20 18:55 Symbicort 80-4.5 Mcg Inhaler INHALATION 2 puff RT-BID ASHLEY Administration Cholecalciferol 25 mcg 10/28/20 21:00 10/30/20 20:22 Cholecalciferol 25 Mcg (1000 Iu) Tablet PO 25 mcg BID ASHLEY Administration Cyclobenzaprine HCl 10 mg 10/28/20 21:00 10/30/20 20:22 Cyclobenzaprine 10 Mg Tab PO 10 mg HS ASHLEY Administration Dexamethasone 6 mg 10/29/20 09:00 10/30/20 08:37 Dexamethasone 2 Mg Tab PO 6 mg DAILY ASHLEY Administration Ezetimibe 10 mg 10/28/20 21:00 10/30/20 20:22 Ezetimibe 10 Mg Tab PO 10 mg HS ASHLEY Administration Enoxaparin Sodium 40 mg 10/28/20 17:30 10/30/20 08:37 Enoxaparin 40 Mg/0.4 Ml Syringe SQ 40 mg DAILY ASHLEY Administration Epinephrine HCl 0.3 mg 10/28/20 17:16 Epinephrine 1 Mg/Ml 1 Ml Amp IM 11/27/20 17:17 ONCE PRN Anaphylaxis Famotidine 40 mg 10/29/20 09:00 10/30/20 08:37 Famotidine 20 Mg Tab PO 40 mg DAILY ASHLEY Administration Levothyroxine Sodium 75 mcg 10/30/20 13:00 10/30/20 14:49 Levothyroxine 75 Mcg Tab PO 75 mcg DAILY@0630 ASHLEY Administration Lidocaine 1 patch 10/28/20 17:16 Lidocaine 5% Patch TOPICAL DAILY PRN pain Metoprolol Tartrate 25 mg 10/28/20 21:00 10/30/20 20:22 Metoprolol Tartrate 25 Mg Tab PO 25 mg BID ASHLEY Administration Zinc Sulfate 220 mg 10/28/20 17:30 10/30/20 08:37 Zinc Sulfate 220 Mg Cap PO 220 mg DAILY ASHLEY Administration Intake and Output 10/30/20 10/30/20 10/30/20 06:59 14:59 22:59 Output Total 375 Balance -375 Output: Urine 375 Other: # Voids 2 10/28/20 12:37 10/28/20 12:37
[2020-10-31] MEDS: LEVOTHYROXINE 75 MCG TAB PO SCH (05:35)
[2020-10-31] MEDS: SYMBICORT 80-4.5 MCG INHALER INHALATION SCH (08:32)
[2020-10-31] MEDS: FAMOTIDINE 20 MG TAB PO SCH (08:55)
[2020-10-31] MEDS: METOPROLOL TARTRATE 25 MG TAB PO SCH (08:55)
[2020-10-31] MEDS: dexAMETHasone 2 MG TAB PO SCH (08:55)
[2020-10-31] MEDS: ASCORBIC ACID 500 MG TAB PO SCH (08:55)
[2020-10-31] MEDS: ZINC SULFATE 220 MG CAP PO SCH (08:56)
[2020-10-31] MEDS: HYDROcodone/APAP 10-325MG 1 EACH TAB PO PRN (08:56)
[2020-10-31] MEDS: ENOXAPARIN 40 MG/0.4 ML SYRINGE SQ SCH (08:56)
[2020-10-31] MEDS: CHOLECALCIFEROL 25 MCG (1000 IU) TABLET PO SCH (08:56)
--- NOTE | 2020-10-31 10:45 | P.PN ---
Subjective This is a pleasant 70 years old male with past medical history of hypertension, hyperlipidemia, coronary artery disease, status post cardiac valve replacement and bypass surgery, status post pacemaker. Also patient is complaining of from chronic right shoulder rotator cuff for 7 months and he will follow up with his PCP Patient presents because of increased weakness and difficulty walking for 4 days without dyspnea or shortness of breath. Patient has difficulty getting out of bed because he feels generally weak, especially he has right shoulder rotator cuff for several months which made him difficult to move around or out of bed and he needed the help of his and family. Also patient complains from some nonspecific lightheadedness and dizziness, no vertigo as there is no spinning of the room, no presyncope. He denies blurred vision, slurred speech, no arm or leg weakness or numbness. No headache Vitas looks stable, patient is saturating 95% on room air, he is afebrile. Labs including CBC, BMP and liver enzymes were unremarkable. ProBNP is low at 38, INR is 1.0 d-dimer is slightly elevated at 0.8. CTA of the chest: No pulmonary embolism, bilateral groundglass opacity suspicious for Covid pneumonia and a large hilar lymphadenopathy on either side up to 2 cm, mostly reactive EKG showed normal sinus rhythm at 83 with right bundle branch block and QTC of 533 In the emergency room patient was started on vitamin C, zinc, also she was started on dexamethasone and Lovenox. Pulmonary team were consulted 10/30/2020 Patient admitted with acute Covid infection and fatigue and severe generalized weakness. Also patient has ongoing lightheadedness. Patient denies vertigo to me. No significant headache or weakness or numbness in the extremities. Pulmonary team cleared the patient for discharge. However pending pacemaker interrogation and placement for subacute rehab No chest pain or dyspnea or abdominal pain. No nausea vomiting. No fever TSH slightly elevated with normal free T4. Also patient might benefit from ENT evaluation as an outpatient Objective - Vital Signs Vital signs: Vital Signs Temp 97.9 F 10/30/20 10:00 Pulse 75 10/30/20 10:00 Resp 18 10/30/20 10:00 BP 105/62 10/30/20 10:00 Pulse Ox 91 L 10/30/20 10:00 Intake & Output 10/29/20 10/30/20 10/30/20 18:59 06:59 18:59 Output Total 375 Balance -375 Output: Urine 375 Other: Voiding Method Urinal # Voids 2 # Bowel Movements 1 - Labs CBC & Chem 7: 10/28/20 12:37 10/28/20 12:37 Labs: Abnormal Lab Results - Last 24 Hours (Table) 10/30/20 Range/Units 09:24 TSH 4.960 H (0.465-4.680) mIU/L Microbiology - Last 24 Hours (Table) 10/28/20 13:41 Blood Culture - Preliminary Blood No Growth after 24 hours 10/28/20 13:58 Blood Culture - Preliminary Blood No Growth after 24 hours Assessment and Plan Assessment: Acute bilateral Covid pneumonitis Generalized weakness and fatigue, mostly related to his viral infection syndrome, worsened with lightheadedness chronic right shoulder rotator cuff for 7 months. The patient refused to see orthopedic in-house and he was to follow up with his PCP as an outpatient Hypertension Hyperlipidemia History of coronary artery disease status post CABG and cardiac valve replacement Status post pacemaker Plan: This is a pleasant 70 years old male who presents with Covid pneumonia. Continue with ascorbic acid, zinc, Lovenox. Follow-up recommendation by bass guitar teacher. Check orthostatic vitals. Given patient's extensive cardiac history and pacemaker will call bumper operator for possible pacemaker interrogation per bumper operator, pt may benefit from Evaluation Labs and medication were reviewed.. Continue same treatment. Continue with symptomatic treatment. Resume home medication. Monitor lytes and vitals. DVT and GI prophylaxis. Further recommendations depends on the clinical course of the patient DVT prophylaxis: Subcutaneous Lovenox GI Prophylaxis: Pepcid PT/OT: rehab, pending placement Prognosis is guarded
--- NOTE | 2020-10-31 11:19 | P.PN ---
Progress Note - Text Pacemaker interrogation reviewed, no significant arrhythmia or pauses. We will follow along as needed, follow up with his [place] delivery driver assistant upon discharge.
[2020-10-31 14:22] VITALS: BP 122/70; PULSE 58; RESP 19; TEMP 98
--- NOTE | 2020-10-31 16:36 | P.PN ---
Subjective Progress Note Date: 10/31/20 Principal diagnosis: Weakness, decreased strength This is a 70-year-old male, who presents to the emergency department, with weakness and fatigue. The patient apparently tested positive for COVID 19, but does not have any lung issues. He denies any shortness of breath, cough, wheezing, phlegm production, hemoptysis, or any other pulmonary complaints. His complaints include primarily just weakness and fatigue. He also denies any fever or chills. He apparently has a history of bypass grafting, hypertension, and hyperlipidemia. He also is a nonsmoker. I asked him today specifically about pulmonary complaints, and he denies all of them. White count is 5.5, hemoglobin 14.3, hematocrit 42.5, and platelet count 101,000. PT, INR, PTT are all normal. D-dimer is 0.87. Sodium 137, potassium 4.1, chlorides 97, CO2 27, anion gap is 13, BUN 19, creatinine 0.74. Urine is essentially negative. Chest x-ray is negative. CT angiogram, is negative for pulmonary embolism. CT also shows some mild groundglass opacities in the left lower lobe, likely consistent with very mild COVID 19 pneumonia. As mentioned, the patient is not requiring any oxygen therapy. On 10/30/2020 patient seen in follow-up on medical floor, he is awake, he is on room air, breathing comfortably, pulse ox is 92-96%, vital signs are stable, no chest discomfort, no worsening dyspnea and hypoxia, patient had no acute events overnight, he continues on oral dexamethasone, Lovenox at prophylactic dose, vitamins. Blood cultures have been negative, no new labs, no new chest x-rays today. On 10/31/2020 patient seen in follow-up on medical floor, sitting up in the chair, doing much better, remains on room air pulse ox 93%, no fever or chills, hemodynamically patient is stable, he states his weakness is also improving, he is tolerating oral diet, does not complain of any chest discomfort or cough or shortness of breath. No fever or chills, remains on dexamethasone, prophylactic Lovenox, and vitamins, clinically improving Objective - Vital Signs Vital signs: Vital Signs Temp 98 F 10/31/20 14:00 Pulse 58 L 10/31/20 14:00 Resp 19 10/31/20 14:00 BP 122/70 10/31/20 14:00 Pulse Ox 93 L 10/31/20 14:00 Intake & Output 10/30/20 10/31/20 10/31/20 18:59 06:59 18:59 Other: Voiding Method Urinal Urinal # Voids 2 3 - Exam GENERAL EXAM: Alert, very pleasant, 70-year-old white male, on room air, with pulse ox of 93% comfortable in no apparent distress. HEAD: Normocephalic/atraumatic. EYES: Normal reaction of pupils, equal size. Conjunctiva pink, sclera white. NOSE: Clear with pink turbinates. THROAT: No erythema or exudates. NECK: No masses, no JVD, no thyroid enlargement, no adenopathy. CHEST: No chest wall deformity. Symmetrical expansion. LUNGS: Equal air entry with no crackles, wheeze, rhonchi or dullness. CVS: Regular rate and rhythm, normal S1 and S2, no gallops, no murmurs, no rubs ABDOMEN: Soft, nontender. No hepatosplenomegaly, normal bowel sounds, no guarding or rigidity. EXTREMITIES: No clubbing, no edema, no cyanosis, 2+ pulses and upper and lower extremities. MUSCULOSKELETAL: Muscle strength and tone normal. SPINE: No scoliosis or deformity SKIN: No rashes CENTRAL NERVOUS SYSTEM: Alert and oriented -3. No focal deficits, tone is normal in all 4 extremities. PSYCHIATRIC: Alert and oriented -3. Appropriate affect. Intact judgment and insight. - Labs CBC & Chem 7: 10/28/20 12:37 10/28/20 12:37 Labs: Microbiology - Last 24 Hours (Table) 10/28/20 13:41 Blood Culture - Preliminary Blood No Growth after 72 hours 10/28/20 13:58 Blood Culture - Preliminary Blood No Growth after 72 hours Assessment and Plan Plan: Assessment: #1. Mild COVID 19 pneumonitis, primarily involving the left lower lobe, without evidence of hypoxemia. Patient was not a candidate for Remdesivir, convalescent plasma, or Tocilizumab #2. Weakness and fatigue #3. History of CAD #4. History of hyperlipidemia #5. History of hypertension #6. History of cardiac valve replacement surgery #7. Prior history of tobacco use, rule out COPD #8. Status post pacemaker insertion Plan: Patient is doing well, continues to improve, his weakness has improved, remains on room air, from pulmonary perspective he can be considered for discharge home today with outpatient follow-up with Dr. Che in the office, and he can complete outpatient course of oral Decadron for total of 10 days. I performed a history & physical examination of the patient and discussed their management with my nurse practitioner, Mary Albert. I reviewed the nurse practitioner's note and agree with the documented findings and plan of care. Lung sounds are positive for a few scattered rales. The findings and the impression was discussed with the patient. I attest to the documentation by the nurse practitioner. Time with Patient: Less than 30
== END 2020-10-31 16:29 | disposition home health service (06) | DRG 177 ==
LOC: EC 11:57 → 4SSUR 15:28
PROVIDERS: ADMIT Hospitalist; ATTEND Hospitalist
DX: U07.1 COVID-19 (principal); J12.82 Pneumonia due to coronavirus disease 2019; I45.2 Bifascicular block; I49.5 Sick sinus syndrome; E78.00 Pure hypercholesterolemia, unspecified; E78.5 Hyperlipidemia, unspecified; F43.10 Post-traumatic stress disorder, unspecified; I10 Essential (primary) hypertension; I25.10 Atherosclerotic heart disease of native coronary artery without angina pectoris; I35.0 Nonrheumatic aortic (valve) stenosis; Z79.51 Long term (current) use of inhaled steroids; Z79.899 Other long term (current) drug therapy; Z87.891 Personal history of nicotine dependence; Z95.0 Presence of cardiac pacemaker; Z95.1 Presence of aortocoronary bypass graft; Z95.2 Presence of prosthetic heart valve; Z90.49 Acquired absence of other specified parts of digestive tract; Z88.8 Allergy status to other drugs, medicaments and biological substances; Z88.6 Allergy status to analgesic agent; Z91.030 Bee allergy status; Z79.82 Long term (current) use of aspirin
CPT/HCPCS: 36415; 71046; 71275; 80053; 81001; 83605; 83880; 84439; 84443; 84484; 85025; 85379; 85610; 85730; 87040; 87635; 93005; 93306; 94640; 94760; 96360; 96361; 99285

== ENCOUNTER → 2021-03-27 | Outpatient (CLI) | payer OTHER ==
--- NOTE | 2021-03-28 14:41 | CT ---
EXAMINATION TYPE: High-resolution CT chest DATE OF EXAM: 03/27/2021 COMPARISON: 10/28/2020 HISTORY: 70-year-old male J44.9 covid in october, TECHNIQUE: High-resolution axial scanning of the chest utilizing 1 mm slice thickness and 1 cm gap wi thout IV contrast per HRCT protocol. Both prone and supine imaging was performed. CT DLP: 981.3 mGycm Automated exposure control for dose reduction was used. FINDINGS: Left anterior chest wall pacemaker generator with right atrial and right ventricular leads. There are median sternotomy wires. Heart normal size without pericardial effusion. Endovascular aortic valve replacement. Post-CABG silvestre ges. Ascending aorta ectatic and 3.9 cm, unchanged. A direct takeoff of the left vertebral artery directly from the aortic arch. AP window lymph nodes prominent but nonenlarged obtained millimeters. Previous hilar lymph nodes not well assessed on this noncontrast HRCT study. Moderate residual interstitial changes remain bilateral medial upper lobes, left lower lobe, and at l east within the periphery of the right lower lobe. There are some associated groundglass changes and bronchiolectasis as well especially in the left lower lobe. No pleural effusion. No honeycombing or thickening of the bronchovascular bundles. Visualized upper abdomen shows no gross abnormality. Bones: DISH within the lower thoracic spine. IMPRESSION: IN THE ABSENCE OF ACUTE INFECTION, THE INTERVAL DEVELOPMENT OF INTERSTITIAL THICKENING, ASSOCIATED AR EAS OF GROUNDGLASS, AND MILD BRONCHIOLECTASIS SUGGEST PROMINENT POSTINFLAMMATORY SCARRING BILATERALLY , LEFT GREATER THAN RIGHT.
== END | disposition home or self-care (01) ==
LOC: RADCTMAIN 16:32
PROVIDERS: ATTEND Internal Medicine Critical Care Medicine
DX: J44.9 Chronic obstructive pulmonary disease, unspecified (principal)
CPT/HCPCS: 71250